=== PATIENT | female | born 1970 | race Caucasian/White ===

== ENCOUNTER 2019-02-10 12:19 | Emergency (ER) | payer OTHER ==
[~2019-02-10] VITALS: Ht 167.6 cm; Wt 72.6 kg
--- OUTSIDE RECORDS SUMMARY | 2019-02-10 12:22 | XMS ---
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 E.DCliff VISIT COUNT (12 MO.) 1 WILL Santana TOTAL 1 NOTE: Visits indicate total known visits. ED/UCC VISIT TRACKING (12 MO.) 02/10/2019 12:19 [facility] [place] TYPE: Emergency COMPLAINT: - DIZZINESS, BLOOD PRESSURE PROBLEM INPATIENT VISIT TRACKING (12 MO.) No inpatient visits to display in this time frame [id number]
[2019-02-10] MEDS ORDERED: CELECOXIB200 MG PO (12:38)
[2019-02-10] MEDS ORDERED: ZOLPIDEM TARTRAT5 MG PO (12:38)
[2019-02-10] MEDS ORDERED: VENLAFAXINE HC150 MG PO (12:39)
== END 2019-02-10 14:26 | disposition home or self-care (01) ==
LOC: ED 12:19
DX: R42 Dizziness and giddiness (principal); R00.2 Palpitations; F32.9 Major depressive disorder, single episode, unspecified; Z88.5 Allergy status to narcotic agent; Z79.899 Other long term (current) drug therapy
CPT/HCPCS: 80053; 85025; 99284

== ENCOUNTER 2021-08-29 12:28 | Emergency (ER) | payer OTHER ==
[~2021-08-29] VITALS: Ht 162.6 cm; Wt 69.4 kg
[~2021-08-29 12:28] MED LIST: CELECOXIB200 MG PO; VENLAFAXINE HC150 MG PO; ZOLPIDEM TARTRAT5 MG PO
--- OUTSIDE RECORDS SUMMARY | 2021-08-29 12:30 | XMS ---
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 EElena VISIT COUNT (12 MO.) 1 WILL [facility]ana TOTAL 1 NOTE: Visits indicate total known visits. ED/UCC VISIT TRACKING (12 MO.) 08/29/2021 12:29 [facility] TYPE: Emergency COMPLAINT: - ABNORMAL LABS INPATIENT VISIT TRACKING (12 MO.) No inpatient visits to display in this time frame [id number]
== END 2021-08-29 16:17 | disposition home or self-care (01) ==
LOC: ED 12:28
DX: R42 Dizziness and giddiness (principal); D64.9 Anemia, unspecified; M19.90 Unspecified osteoarthritis, unspecified site; Z88.5 Allergy status to narcotic agent; Z79.899 Other long term (current) drug therapy
CPT/HCPCS: 36415; 74177; 80048; 85025; 85060; 99284-25; Q9967

== ENCOUNTER 2023-03-31 07:43 | Day surgery (SDC) | payer OTHER ==
[~2023-03-31] VITALS: Ht 162.6 cm; Wt 76.9 kg
[2023-03-31 08:02] VITALS: BP 112/76
[2023-03-31] MEDS ORDERED: VENTOLIN HFA18 GM (08:05)
--- NOTE | 2023-03-31 10:05 | NUR ---
03/31/23 1005 Mahi Reinoso 0924 PT ARRIVED IN PACU SLEEPY. ABD SOFT. 0945 RESTING. REU. 1000 AWAKENS TO VERBAL STIMULI, THEN FALLS BACK TO SLEEP.
[2023-03-31 10:12] VITALS: BP 98/68
--- NOTE | 2023-03-31 10:16 | OR ---
[facility] [address] [place], [place] [address] Signed DATE OF OPERATION: 03/31/2023 SURGEON: Costa Longoria MD PREOPERATIVE DIAGNOSES: 1. Screening colonoscopy. 2. Chronic iron deficiency anemia status post gastric bypass. POSTOPERATIVE DIAGNOSES: 1. 4 mm polyps x2 at 20 cm in sigmoid colon. 2. 3 mm polyp at 8 cm in rectum. 3. Long redundant tortuous colon. 4. Minimal to moderate internal hemorrhoids. PROCEDURE: Colonoscopy with hot biopsy. ESTIMATED BLOOD LOSS: None. INDICATIONS: Maia is a 53-year-old female, asked to see me for her initial screening colonoscopy. There is no family history of colon cancer or polyps. She has no lower GI complaints. She went through a gastric bypass initially and then later had a gastric band placed. At one point, she was 450 pounds. She is now down to 165 pounds. She has chronic iron deficiency anemia associated with the gastric bypass. She is allergic to in the iron tablets. Consequently, she has to have iron infusions intermittently. In the office, I had given her a pamphlet on colonoscopy. We reviewed the nature of the test. There is risk including, but not limited to gas bloating, crampy abdominal pain, bleeding, perforation requiring surgery, and missed diagnosis. We also reviewed the written instructions for the bowel prep line by line. She did start the bowel prep earlier in the day. I think in the future, she could use a little more bowel prep, it would be helpful. She did have some areas of liquid particulate stool matter that were difficult to suction through the scope. She also understands the need for IV conscious sedation. She had expressed understanding and wished to proceed. DESCRIPTION OF PROCEDURE: Maia was taken into our endoscopy suite and placed in the left lateral decubitus position. She was given 7 mg of Versed and 125 mcg of fentanyl to cover the case. A digital rectal exam was performed and this was unremarkable. There were no external Electronically Signed By: COSTA LONGORIA MD 03/31/23 1016 PATIENT NAME: MAIA LEMUS OPERATIVE REPORT DATE OF : 68 REPORT #: [id number] PHYSICIAN: COSTA LONGORIA MD PCP: GERARDO WHITAKER PA-C REPORT IS CONFIDENTIAL AND NOT TO BE RELEASED WITHOUT AUTHORIZATION [facility] [address] [place], [place] [address] Signed hemorrhoids. Good sphincter tone. No masses noted. The adult colonoscope was introduced and advanced under direct visualization of the camera. She required extra sedation and abdominal compression in order to get to a long redundant and tortuous colon. Eventually, we made it into the cecum itself. The area was irrigated and suctioned out until clear. The scope was then slowly withdrawn. We took pictures throughout for photodocumentation. We could easily see the appendiceal orifice and ileocecal valve. We came back through that long redundant tortuous colon. She has no diverticulosis. The above-mentioned polyps were biopsied and removed completely with the hot biopsy forceps. Once in the rectum, the scope had been retroflexed and she does have minimal to moderate internal hemorrhoid columns. After this, the gas was suctioned out and colonoscope removed. Maia tolerated the procedure quite well. RECOMMENDATIONS: I will see Maia back in my office in 7 to 14 days to review her results. She should use some extra bowel prep in the future. Costa Longoria MD ALB/MODL /[id number] cc: MD Gerardo Benavides PA Copies: COSTA LONGORIA MD ~ Electronically Signed By: COSTA LONGORIA MD 03/31/23 1016 PATIENT NAME: MAIA LEMUS OPERATIVE REPORT DATE OF : 68 REPORT #: [id number] PHYSICIAN: COSTA LONGORIA MD PCP: GERARDO WHITAKER PA-C REPORT IS CONFIDENTIAL AND NOT TO BE RELEASED WITHOUT AUTHORIZATION
--- NOTE | 2023-04-03 16:03 | PATH ---
[facility] [address] [place], [place] [address] Signed SPECIMEN(S): A SIGMOID POLYPS, 20 CM SPECIMEN(S): B RECTAL POLYP, 8 CM SPECIMEN SOURCE: A. SIGMOID POLYPS, 20 CM B. RECTAL POLYP, 8 CM CLINICAL HISTORY: Colonoscopy. Screening. Polyps. Dx: Int. hem., long redundant colon. FINAL PATHOLOGIC DIAGNOSIS: A. Sigmoid polyps at 20 cm: - Tubular adenoma (multiple fragments). B. Rectal polyp at 8 cm: - Hyperplastic polyp (one fragment). JVR:[facility] [place] MICROSCOPIC EXAMINATION: Histologic sections of all submitted blocks are examined by light microscopy. These findings, together with the gross examination, support the pathologic diagnosis. GROSS DESCRIPTION: A. The specimen, labeled and designated "David, L, 1. " and designated on the requisition "sigmoid polypectomy, 20 cm, x 2," is received in formalin and consists of four tracey, soft tissue fragments that measure 0.2-0.3 cm in greatest dimension. The specimen is entirely submitted in (A1). B. The specimen, labeled and designated "David, L, 2." and designated on the requisition "rectum polypectomy, 8 cm," is received in formalin and consists of one tracey, soft tissue fragment that is 0.3 cm in greatest dimension. The specimen is entirely submitted in (B1). FB (under the direct supervision of a pathologist) The Gross Description was prepared using a voice recognition system. The report was reviewed for accuracy; however, sound-alike word errors, addition and/or deletions may occur. If there is any question about this report, please contact Client Services. ADDITIONAL NOTES: Immunohistochemical and/or in situ hybridization studies if performed in this case included appropriate positive controls that reacted as expected. This PATIENT NAME: CRISTAL LEMUS PATHOLOGY DATE OF : 68 REPORT #: [id number] PHYSICIAN: ROSHAN PATHOLOGY PCP: GERARDO WHITAKER PA-C REPORT IS CONFIDENTIAL AND NOT TO BE RELEASED WITHOUT AUTHORIZATION [facility] [address] [facility] [place] [place] [address] Signed test was developed and its performance characteristics determined by [facility]. It has not been cleared or approved by the U.S. Food and Drug Administration. The FDA has determined that such clearance or approval is not necessary. This test is used for clinical purposes. It should not be regarded as investigational or for research. [facility] is certified under the Clinical Laboratory Improvement Amendments of 1988 (CLIA) as qualified to perform high complexity clinical laboratory testing. PERFORMING LABORATORY: Technical component was performed by [facility], [address] [place] [id number] (CLIA# [id number]). Professional interpretation was performed by [facility], [address] [place] [id number] (CLIA#: [id number]). Diagnostician: Dillon Goodwin MD Pathologist Electronically Signed 04/03/2023 Copies: ~ PATIENT NAME: CRISTAL LEMUS PATHOLOGY DATE OF : 68 REPORT #: [id number] PHYSICIAN: ROSHAN LEON PCP: GERARDO WHITAKER PA-C REPORT IS CONFIDENTIAL AND NOT TO BE RELEASED WITHOUT AUTHORIZATION
== END 2023-03-31 10:20 | disposition home or self-care (01) ==
LOC: OPS 07:43 → DS 07:43 → OPS 09:00 → DS 09:00 → OPS 10:20
PROVIDERS: ATTEND Colon & Rectal Surgery
PROC: 0DBN8ZX Excision of Sigmoid Colon, Via Natural or Artificial Opening Endoscopic, Diagnostic (ICD-10-PCS; 2023-03-31)
PROC: 0DBP8ZX Excision of Rectum, Via Natural or Artificial Opening Endoscopic, Diagnostic (ICD-10-PCS; principal; 2023-03-31 09:00)
DX: Z12.11 Encounter for screening for malignant neoplasm of colon (principal); D12.5 Benign neoplasm of sigmoid colon; K62.1 Rectal polyp; D50.8 Other iron deficiency anemias; K64.8 Other hemorrhoids; F32.A Depression, unspecified; E55.9 Vitamin D deficiency, unspecified; Z79.899 Other long term (current) drug therapy; Z98.84 Bariatric surgery status
CPT/HCPCS: 99153; G0500; J2250; J3010; J7121